=== PATIENT | female | born 1970 | race Caucasian/White ===

== ENCOUNTER 2016-07-04 11:15 | Outpatient (RCR) | payer OTHER ==
--- NOTE | 2016-05-01 14:24 | PT/OT/ST INITIAL EVALUATION ---
[facility], [facility]. PHYSICAL/OCCUPATIONAL THERAPY [address] [place] [id number] PLAN OF CARE/ASSESSMENT FOR OUTPATIENT REHABILITATION (Complete for Initial Claims Only) 1. PATIENT'S NAME Norma Gramajo 2. ACC # [id number] 3. REFERRING PHYSICIAN Dr. Nelson Rausch 4. PRIMARY DX Left total knee arthroplasty 5. SECONDARY DX Left knee pain, left knee stiffness, difficulty walking and weakness. 6. ONSET DATE 04/24/2016 surgery 7. REFERRAL DATE 04/24/2016 8. SOC. DATE/TIME 04/30/2016 1:48 p.m. to 2:45 p.m. 9. CHARGES PT evaluation low complexity 88133 Therapeutic exercise 86687, 2 units. Vasopneumatic device 00057, 1 unit 10. G. CODES 11. PRIOR LEVEL OF FUNCTION; PERTINENT HISTORY (Prior therapy results, reason for referral.) S: Prior to therapy the patient consented to today's evaluation and treatment. The patient is a 45-year-old female referred to physical therapy by Dr. Rausch to address functional limitations secondary to left total knee arthroplasty on 04/24/2016. Current complaint/Mechanism of injury: The patient reports that she needed her left knee replaced due to rheumatoid arthritis. Functional performance/Prior level of function: The lower extremity functional scale rates the patient as 17 out of 80. The patient did not use an assistive device prior to surgery and is currently using a front-wheeled walker. Occupational and social history: None. The patient states that she is not currently working. Therapy History: None recently. The patient rates the current pain level as 7/10 now and at worst 10/10 and describes the pain as an achy, throbbing pain. Obstacles to delivery of care: None noted. Aggravating factors include "everything." Relieving factors include pain medicine. Diagnostic testing: The patient reports x-rays were taken prior to surgery. Past medical history includes rheumatoid arthritis, depression which she states is controlled, and hypertension which she states she thinks is controlled with medication and thyroid issues. However, she did not know if she is hypothyroid or hyperthyroid. Past surgical history includes having surgery on her right knee in 1996, tonsillectomy, , sinus surgery and a biopsy of her left breast. Current medications: Include aspirin. The patient reports not being sure if she is taking oxycodone or OxyContin, and Mobic. The patient is asked to bring a complete list of medications to place in her chart at the next visit because she is unable to recall what they are. Leisure activities: The patient reports that she would like to be able to play with her grandkids and her family states they would like her to do some walking for exercise. Activity level: Listed as low. Health rating: Health rating is listed as fair. The patient's goal for physical therapy is to be able to get on the floor and then back up to play with the grandkids. 12. INITIAL ASSESSMENT/SAFETY PRECAUTIONS/MEDICAL COMPLICATIONS (Level of function at start of care. Be specific, use objective measures, list problems.) O: APPEARANCE, OBSERVATION AND GAIT: The patient presents to physical therapy with her mother and her daughter and uses a front-wheeled walker in the clinic. The patient reports that she does have some numbness and tingling in her left foot since having surgery. The patient reports that she was not given a CPM machine to use, however, she is elevating her leg, however, her knee is not above her heart and she is using ice packs. The patient reports that she lives at home with her ; however, her is only home on the weekends. He is working during the week so her daughter lives down the street and her mother checks on her throughout the day. They state they try not to leave her alone at this point in time. The patient has 2 steps into her home without a railing and no steps that she has to do inside the home. The patient does have somewhat of a flat affect and does not engage in a lot of conversation and is having some difficulty with memory, which she states is due to the medication. PALPATION: The patient did not have significant tenderness to palpation of the left lower extremity. SPECIAL TESTS: Bilateral LE negative Homans . RANGE OF MOTION/FLEXIBILITY: AROM of the knees into flexion, left knee 72 degrees in seated, right knee 110 degrees in supine. Extension left knee lacking 6 degrees of extension and with a quad set -5 degrees. Right knee 3 degrees of hyperextension. STRENGTH: No formal manual muscle testing was performed due to recent surgery; however, upon observation the left knee rates a 2/5 into flexion and extension. TODAY'S TREATMENT: Included the initial PT evaluation followed by therapeutic exercise, along with instruction on how to properly elevate her knee and issued home exercise program instructions followed by vasopneumatic device. 13. INITIAL POC: (Specify procedures, modalities, short and fpc goals) A: The patient presents to physical therapy with the diagnosis of a left total knee arthroplasty. The patient would benefit from physical therapy in order to gain AROM, strength and proprioception to help return to her normal activities at home, as well as to return to being able to get up and down from the floor safely without risk of falls and to restore the proper balance strategies and mechanics to help with gait. PROGNOSIS: The patient has a good prognosis for increased active range of motion with decreased pain with regular therapy attendance and compliance with prescribed home exercise program. CONTRAINDICATIONS, PRECAUTIONS AND OBSTACLES TO TREATMENT: No contraindications, precautions, or obstacles known at this time. GOALS: 1. The patient is to have a decrease in pain to less than or equal to 2/10 in 6 weeks in order to be able to walk with proper gait pattern without deviation. 2. The patient is to have an increase in manual muscle testing of the left knee to 4+/5 into flexion and extension in order to be able to ascend and descend steps with using one foot on each step to be able to return to normal activity, as well as to get up and down from the floor safely without deviation. 3. The patient is to have an increase in AROM of the left knee to 0 to 120 degrees in 6 weeks in order to be able to have motion needed to play with grandkids on the floor and be able to get up and down from the floor without deviation. 4. The patient is to be independent with a progressive home exercise program. The prognosis and goals were discussed with the patient, as well as the expected outcome and possible risks. The patient agreed to undergo PT evaluation and further treatment. The patient to return to her physician in 2 weeks, however, her daughter states that she does not have an appointment set up and it was suggested that she call to set up her appointment. P: Plan to treat this patient 2 to 3 times a week for 6 weeks to address functional limitations secondary to left total knee arthroplasty including left knee pain, left knee stiffness, difficulty walking and weakness. . Treatment to include modalities for pain and inflammation, manual therapy interventions, therapeutic exercise, active and passive range of motion, gait training, balance and proprioceptive training, neural reeducation and patient education and prescription of progressive home exercise program as tolerable. Manual therapy is planned to be done at patient's second visit. 15. PHYSICIAN SIGNATURE ? ON FILE OR ENTER HERE: 16. DATE: I certify the need for these services furnished under this plan of care and if for partial hospitalization. 17. CERTIFICATION FROM THROUGH
[~2016-07-04 11:15] MED LIST: ACET-2341 PO; CALC-697 PO; FLC1T PO; GOLI50DI SQ; LEVO25TA5 PO; LEVO500T80 PO; LEVO50TA PO; LORA10CA PO; LSNP10T PO; MAGN250T PO; MECL-115 PO; METH2.5T PO; NF-FLON16G; OMEP20CA12 PO; PARO20TA57 PO; PRED20TA PO; PRM25T PO; SUMA50TA2 PO; TRAM-25 PO; [UNRECOGNIZED DRUG - CODE] PO
== END 2016-07-16 10:19 | disposition home or self-care (01) ==
LOC: PT 11:15
PROVIDERS: ATTEND Orthopaedic Surgery
DX: Z47.1 Aftercare following joint replacement surgery (principal); Z96.652 Presence of left artificial knee joint; M25.562 Pain in left knee; M25.662 Stiffness of left knee, not elsewhere classified; R26.2 Difficulty in walking, not elsewhere classified

== ENCOUNTER → 2016-07-30 | Outpatient (CLI) | payer OTHER ==
--- NOTE | 2016-07-30 13:30 | Diagnostic Imaging Report ---
INDICATION: Dysmenorrhea. COMPARISON: 09/24/2012. DISCUSSION: Transabdominal and transvaginal sonographic evaluation of the pelvis was performed. The uterus is enlarged measuring 12.2 x 6.9 x 8.6 cm and contains multiple fibroids, the largest of which measures 3.9 x 3.8 x 4.0 cm. Normal endometrial thickness. The endometrium measures 1.4 cm. There is a small amount of fluid noted within the cervical os which shows mild irregularity of the wall which could represent a small polyp measuring 4 mm although is indeterminate. An underlying lesion cannot be excluded either. Recommend clinical consultation. The ovaries appear normal in echotexture and size bilaterally with normal color Doppler blood flow. The right ovary measures 3.2 x 2.7 x 2.1 cm. The left ovary measures 2.4 x 2.6 x 1.6 cm. No abnormal adnexal mass or fluid. IMPRESSION: 1. Enlarged fibroid uterus, stable. 2. A small amount of fluid is noted within the cervix which shows mild irregularity of the canal wall which is of uncertain etiology and malignancy is not excluded. Recommend clinical correlation and Pap smear. Dictated by: Dictated on workstation # [id number]
== END ==
LOC: RAD 09:21
PROVIDERS: ATTEND Family Medicine
DX: N94.6 Dysmenorrhea, unspecified (principal); N92.1 Excessive and frequent menstruation with irregular cycle; N85.2 Hypertrophy of uterus
CPT/HCPCS: 76830; 76856